=== PATIENT | female | born 1945 | race Caucasian/White ===

== ENCOUNTER → 2019-07-31 14:25 | Outpatient (CLI) | payer MEDICARE, SELFPAY ==
--- NOTE | 2019-07-31 14:30 | MM_ITS ---
PROCEDURE: MM DIG SCREENING MAMM BI W/CAD CLINICAL INDICATION: SCREENING There is no personal or family history of breast cancer. COMPARISON: DIG MAMMO BILAT SCREENING from 05/04/2010 MA MAMMO SCRN DIGITL BILAT from 06/20/2011 DMSB DIG MAMM-SCREEN REX from 06/08/2016 TECHNIQUE: Standard CC and MLO images were obtained. R2 CAD reviewed. FINDINGS: There is a diffusely dense and heterogenic parenchymal pattern lessening the sensitivity of mammography. There are scattered benign-appearing microcalcifications in each breast and a couple of benign-appearing macro calcifications in each breast. The findings are fairly symmetrical bilaterally. There is no new or suspicious lesion in either breast and no suspicious microcalcifications. IMPRESSION: Diffusely dense parenchymal pattern with no suspicious lesions seen BI-RAD Category: 2 Benign Finding(s) FOLLOW-UP: 1YR 1 Year Follow-up (A letter has been sent to the patient regarding results of the study.) Dictated by: Dr. Vinnie Frederick MD 08/05/2019 09:[address] Vinnie Frederick MD in [place] 08/05/2019 09:11
== END ==
PROVIDERS: PCP Family Medicine; Visit Provider Family Medicine
DX: Z12.31 Encounter for screening mammogram for malignant neoplasm of breast (principal)
CPT/HCPCS: 77067

== ENCOUNTER → 2020-12-14 10:51 | Outpatient (POV) | payer MEDICARE, SELFPAY | PROVIDERS: Visit Provider Dermatology | DX: Z00.00 Encounter for general adult medical examination without abnormal findings (principal) ==

== ENCOUNTER → 2021-10-06 09:04 | Outpatient (CLI) | payer MEDICARE, SELFPAY ==
--- NOTE | 2021-10-06 09:08 | MM_ITS ---
PROCEDURE INFORMATION: Exam: MG Bilateral Screening 3D Mammography Exam date and time: 10/06/2021 9:08 AM Age: 75 years old Clinical indication: Encounter for screening mammogram for malignant neoplasm of breast TECHNIQUE: Imaging protocol: Screening tomosynthesis and 2D mammography including computer-aided detection (CAD) when performed. COMPARISON: 1. MG MM DIG SCREENING MAMM BI W/CAD 07/31/2019 3:19 PM 2. MG MAMMO SCREENING DIGITAL TOMOSYNTHESIS BILATERAL W CAD 05/16/2018 11:27 AM 3. MG DMSB DIG MAMM-SCREEN REX 06/08/2016 10:25 AM FINDINGS: MAMMOGRAPHY: Breast composition: The breasts are extremely dense, which lowers the sensitivity of mammography. Mass: No suspicious masses. Architectural distortion: No suspicious distortion. Calcifications: No suspicious calcifications. Asymmetric density: None. Skin thickening: None. Axillary adenopathy: None. IMPRESSION: No mammographic evidence of malignancy. Annual screening is recommended unless otherwise clinically indicated. ASSESSMENT: BI-RADS Category 1: Negative
--- NOTE | 2021-10-06 09:08 | XR_ITS ---
FINAL REPORT TECHNIQUE: Bone mineral density was calculated of the lumbar spine and hip. CLINICAL HISTORY: . osteoporosis, post menopausal FINDINGS: Using L1-4, the bone mineral density of the spine is 0.926 g/cm2, corresponding to T-score of -1.1. Using the left hip, the bone mineral density of the femoral neck is 0.649 g/cm2, corresponding to a T-score of -1.8. NOTE: T-score: Standard deviation compared with peak bone mass of young adult mean. *Following the recommendations of the International Society of Bone densitometry, classification of hip BMD is based on the lower of two T-scores; total hip or femoral neck. IMPRESSION: Diminished bone mineral density of the lumbar spine and left hip consistent with osteopenia. Reviewed, Interpreted and Dictated by Shahid Dimas III, MD Transcribed by Heidi Gonsales Authenticated by Shahid Dimas III, MD on 10/06/2021 11:21:44 AM [facility]
== END ==
PROVIDERS: PCP Family Medicine; Visit Provider Family Medicine
DX: Z12.31 Encounter for screening mammogram for malignant neoplasm of breast (principal); Z13.820 Encounter for screening for osteoporosis; Z78.0 Asymptomatic menopausal state
CPT/HCPCS: 77063; 77067; 77080

== ENCOUNTER → 2021-12-20 09:59 | Outpatient (POV) | payer MEDICARE, SELFPAY | PROVIDERS: Visit Provider Dermatology | DX: Z00.00 Encounter for general adult medical examination without abnormal findings (principal) ==

== ENCOUNTER → 2022-02-02 18:54 | Outpatient (CLI) | payer MEDICARE, SELFPAY | PROVIDERS: Visit Provider Podiatrist | DX: M79.675 Pain in left toe(s) (principal); L60.0 Ingrowing nail; L60.2 Onychogryphosis | CPT/HCPCS: 87102; 87206 ==

== ENCOUNTER → 2022-02-11 10:33 | Outpatient (CLI) | payer MEDICARE, SELFPAY | PROVIDERS: Visit Provider Ophthalmology | DX: Z01.812 Encounter for preprocedural laboratory examination (principal); Z20.822 Contact with and (suspected) exposure to COVID-19 | CPT/HCPCS: C9803; U0003; U0005 ==

== ENCOUNTER 2022-02-14 08:47 | Day surgery (SDC) | payer MEDICARE, SELFPAY ==
[2022-02-09 13:02] VITALS: BMI 24.3
[2022-02-14 09:31] VITALS: BP 151/76; PULSE 63; RESP 18; TEMP 36.6; O2SAT 100
[2022-02-14 10:07] VITALS: BP 148/87; PULSE 65; RESP 18; TEMP 36.9; O2SAT 98
== END 2022-02-14 10:08 | disposition home or self-care (01) ==
LOC: OUTP 08:48
PROVIDERS: PCP Family Medicine; Visit Provider Ophthalmology
PROC: (CPT 66821; principal; 2022-02-14 09:30)
DX: H26.491 Other secondary cataract, right eye (principal); H02.831 Dermatochalasis of right upper eyelid; H02.834 Dermatochalasis of left upper eyelid; Z96.1 Presence of intraocular lens; Z88.2 Allergy status to sulfonamides; Z79.899 Other long term (current) drug therapy
CPT/HCPCS: 66821

== ENCOUNTER → 2022-04-22 10:20 | Outpatient (CLI) | payer MEDICARE, SELFPAY | PROVIDERS: Visit Provider Surgery | DX: U07.1 COVID-19 (principal) | CPT/HCPCS: C9803; U0003; U0005 ==

== ENCOUNTER 2022-05-17 09:10 | Day surgery (SDC) | payer MEDICARE, SELFPAY ==
[2022-05-15 09:49] VITALS: BMI 23.8
[2022-05-17] VITALS (7 sets, daily range): BP systolic 85–147; BP diastolic 47–75; PULSE 64–77; RESP 16–18; TEMP 36.6–37.1; O2SAT 93–100
--- NOTE | 2022-05-17 09:59 | P.PN_ITS ---
[facility] Medical History (Updated 05/17/22 @ 09:27 by Leticia Cordoba, RN) History of COVID-19 Hyperlipidemia Kidney stone Menopause Pneumonia Surgical History (Updated 05/17/22 @ 09:25 by Leticia Cordoba, RN) History of appendectomy Family History (Updated 05/17/22 @ 09:30 by Leticia Cordoba, RN) Other Colon cancer Family history of acute congestive heart failure Family history of diabetes mellitus type I Family history of hypertension Family history of myocardial infarction Family history of ovarian cancer Social History Smoking Status: Never smoker second hand exposure: No alcohol intake: current substance use type: denies use current occupational status: retired household members: none housing: house current occupational exposures/hazards: No caffeine: Yes
--- NOTE | 2022-05-17 10:05 | EXP.HP ---
[facility] Medical History (Updated 05/17/22 @ 10:09 by Harrison Ayon MD) History of COVID-19 Hyperlipidemia Kidney stone Menopause Pneumonia Surgical History (Updated 05/17/22 @ 09:25 by Leticia Cordoba, RN) History of appendectomy Family History (Updated 05/17/22 @ 09:30 by Leticia Cordoba, RN) Other Colon cancer Family history of acute congestive heart failure Family history of diabetes mellitus type I Family history of hypertension Family history of myocardial infarction Family history of ovarian cancer Social History (Updated 05/17/22 @ 10:00 by German Pryor CRNA) Smoking Status: Never smoker second hand exposure: No alcohol intake: current substance use type: denies use current occupational status: retired household members: none housing: house current occupational exposures/hazards: No caffeine: Yes Review of Systems Review of Systems Review of systems (narrative): Normal Constitutional Constitutional: Reports system reviewed and no additional complaints, except as documented *Cardiovascular Cardiovascular: Reports system reviewed and no additional complaints, except as documented *Respiratory Respiratory: Reports system reviewed and no additional complaints, except as documented *Gastrointestinal Gastrointestinal: Reports system reviewed and no additional complaints, except as documented Meds Home Medications and Allergies Home Medications Medication Instructions Recorded Confirmed Type atorvastatin 40 mg tablet 40 mg PO HS Cholesterol 02/01/22 05/17/22 History gabapentin 100 mg capsule 100 mg PO DAILY Pain 02/01/22 05/17/22 History peg 3350 240 gram-electrolytes 240 ml PO Q10M Colonscopy #4,000 mL 05/15/22 05/17/22 Rx 22.72 gram-6.72 g-5.84 g powdr for soln (Gavilyte-C) New Prescriptions to Start Prescriptions: Allergies Allergy/AdvReac Type Severity Reaction Status Date / Time Sulfa (Sulfonamide AdvReac Mild rash and Verified 05/17/22 09:28 Antibiotics) itching Exam Data for Last 24 hours Vital signs and Labs for Last 24 Hours: Temp Pulse Resp BP Pulse Ox 98.7 F 70 17 147/70 H 100 05/17/22 09:30 05/17/22 09:30 05/17/22 09:30 05/17/22 09:30 05/17/22 09:30 I & O for Last 24 hours: Intake & Output 05/14/22 05/15/22 05/16/2205/17/22 23:59 23:59 23:59 23:59 Weight 152 lb Assessment and Plan *Assessment and plan (1) Colonoscopy planned: Status: Acute Category: Medical
--- NOTE | 2022-05-17 10:34 | HMH.SCOPE ---
Procedure: Date: 05/17/22 Patient Date of :: 1945 Procedure Performed:: Colonoscopy Indications:: The patient is a 76 year old who is here for high risk screening colonoscopy. She has a family history of colon cancer in a first degree relative (mother) Performing Provider:: Harrison Ayon MD Referring Provider:: Dudley Calvillo MD Sedation:: See RN notes Procedure:: After placing the patient in the left lateral decubitus position, the colonoscopy was gently inserted into the rectum and under direct visualization advanced to the cecum which was identified by transillumination in the right lower quadrant, identification of the ileocecal valve, appendiceal orifice, and cecal strap. Color, texture, mucosa, and anatomy of the colon were carefully examined with the scope. Bowel preparation was good Findings:: Anal canal: normal Rectum: Internal hemorrhoids Sigmoid colon: Diverticulosis Descending colon: normal without polyps or inflammatory changes Splenic flexure: normal Transverse colon: normal without polyps or inflammatory changes Hepatic flexure: normal Ascending colon: normal without polyps or inflammatory changes Cecum: normal Terminal ileum: not visualized Impression: Sigmoid diverticulosis Tortuous colon Recommendations:: higher fiber diet repeat colonoscopy in 5 years if overall health is still good Complications:: none Estimated blood obtained (mL): 0
== END 2022-05-17 11:25 | disposition home or self-care (01) ==
PROVIDERS: Visit Provider Internal Medicine
PROC: 0DJD8ZZ Inspection of Lower Intestinal Tract, Via Natural or Artificial Opening Endoscopic (ICD-10-PCS; CPT 45378; principal; 2022-05-17 10:00)
DX: Z12.11 Encounter for screening for malignant neoplasm of colon (principal); Z86.010 Personal history of colon polyps; Z80.0 Family history of malignant neoplasm of digestive organs
CPT/HCPCS: G0105

== ENCOUNTER 2023-08-21 08:57 | Day surgery (SDC) | payer MEDICARE, SELFPAY ==
[2023-08-21 09:15] VITALS: BP 136/73; PULSE 71; RESP 16; TEMP 36.7; O2SAT 98; BMI 24.3
== END 2023-08-21 10:00 | disposition home or self-care (01) ==
PROVIDERS: PCP Internal Medicine; Visit Provider Ophthalmology
PROC: (CPT 66821; principal; 2023-08-21 09:00)
DX: H26.40 Unspecified secondary cataract (principal)
CPT/HCPCS: 66821

== ENCOUNTER 2024-10-07 11:09 | Outpatient (CLI) | payer MEDICARE, SELFPAY | END 2024-10-07 23:59 | disposition home or self-care (01) | LOC: LAB 11:13 | PROVIDERS: PCP Family Medicine; Visit Provider Family Medicine | DX: Z02.9 Encounter for administrative examinations, unspecified (principal) ==

== ENCOUNTER 2024-10-26 09:32 | Emergency (ER) | payer MEDICARE, SELFPAY ==
[2024-10-26] VITALS (12 sets, daily range): BP systolic 127–165; BP diastolic 46–127; PULSE 66–112; RESP 10–23; TEMP 36.7–37.5; O2SAT 94–99; BMI 25.0
--- NOTE | 2024-10-26 09:39 | ECG_ITS ---
APPROVED REPORT Exam: Resting ECG HR:106 bpm ECG Measurements Heart Rate 106 AXES MO 148 P 73 QRSd 96 QRS 81 QT 269 T 57 QTc 331 Conclusion Sinus tachycardia Diffuse ST depression without elevations consistent with global subendocardial ischemia Electronically signed by : LOKI SCHMID, 10/27/2024 13:18:02
--- NOTE | 2024-10-26 10:13 | XR_ITS ---
PROCEDURE INFORMATION: Exam: XR Chest Exam date and time: 10/26/2024 10:29 AM Age: 79 years old Clinical indication: Shortness of breath; Additional info: SOA, dizziness TECHNIQUE: Imaging protocol: Radiologic exam of the chest. Views: 1 view. COMPARISON: No relevant prior studies available. FINDINGS: Lungs: Unremarkable. No consolidation. Pleural spaces: Unremarkable. No pleural effusion. No pneumothorax. Heart/Mediastinum: There are calcified lymph nodes in the right hilar region. Vasculature: There is atherosclerotic calcification of the thoracic aorta. Bones/joints: Unremarkable. IMPRESSION: No acute cardiopulmonary process.
--- NOTE | 2024-10-26 10:22 | HMH.EDGENADL ---
Discharge Plan Disposition Patient Disposition: Xfer Short-Term Hosp Chief Complaint: Dizziness Prescriptions Prescriptions: No Action atorvastatin 40 mg tablet 40 mg PO HS Referrals Follow up/Referrals: Dudley Calvillo [Primary Care Provider] - See instructions Clinical Impressions Clinical Impression: Cold agglutinin disease, Hemolytic anemia, Acute hepatitis Print Language Print Language: Korean Discharge ED Provider: Edilson Barraza General Adult HPI General Chief complaint: Dizziness Stated complaint: dizzy, cant walk Time Seen by Provider: 10/26/24 09:42 Mode of Arrival: Wheelchair Source of Information: Patient Limitations: No Limitations Description of Symptoms (Recalled from ER Triage Doc. by RN): pt states she woke up yesterday dizzy. pt states when she stands the room feels like it is spinning. pt also c/o fatigue, SOA with exertion, nausea, and a nonproductive cough. pt has a hx of HLD and appe. History of Present Illness HPI narrative: Please note that above description of symptoms, in this electronic medical record under categorization of recalled from ER triage doctor by RN are reflective of an initial nursing assessment, however, is not reflective of my full history and physical exam that was personally taken and clarified. Consequentially, this preceding description of symptoms, which may include the patient's categorized chief complaint in the EMR, do not reflect my personal clinical impression, and the ultimate description of history of present illness and patient stated complaints should be deferred to this section of the note. Unless stated otherwise or congruent with this section of the note, additional signs, symptoms, or incongruence should be interpreted as inaccurate with my clinical impression. Related Data Home Medications ?Medication ?Instructions ?Recorded ?Confirmed atorvastatin 40 mg tablet 40 mg PO HS Cholesterol 02/01/22 10/26/24 Allergies Allergy/AdvReac Type Severity Reaction Status Date / Time Sulfa (Sulfonamide AdvReac Mild rash and Verified 10/26/24 09:45 Antibiotics) itching PFSH [facility] Disclaimer: The information contained in this section may have been updated after the patient was seen, as this information can be updated by other users. Medical History (Updated 10/26/24 @ 13:43 by Edilson Barraza MD) Kidney stone Pneumonia History of COVID-19 Menopause Hyperlipidemia Surgical History History of appendectomy Family History Other Colon cancer Family history of acute congestive heart failure Family history of diabetes mellitus type I Family history of hypertension Family history of myocardial infarction Family history of ovarian cancer Social History Smoking Status: Never smoker second hand exposure: No alcohol intake: current alcohol intake frequency: holidays/special occasions only substance use type: denies use current occupational status: retired Travel in the last 8 weeks: None household members: none housing: house current occupational exposures/hazards: No caffeine: Yes Have you lived/traveled outside [place] in past 30 days?: No Contact w/someone who lives/traveled outside US past 30 days?: No Exposure to someone with infectious disease in past 14 days?: No Do you have a fever (greater than 100.4 F or 38 C)?: No Have you tested positive for COVID-19: No Exposed to someone with COVID-19 in past 14 days?: No Do you have a sore throat?: No Do you have a cough?: No Do you have any weakness?: No Do you have any diarrhea?: No Are you experiencing any unusual bleeding?: No Do you have any muscle aches/pain?: No Do you have any abdominal pain?: No Are you experiencing loss of taste or smell?: No Other Medical History Have you received the Flu Vaccine for this season: Yes Have you received the Pneumonia Vaccine: Yes ROS Obtained: Yes All systems reviewed & no additional complaints except as documented Physical Exam General General appearance: alert Head Head exam: atraumatic and normocephalic Eye Eye exam: Present normal appearance, PERRL and EOMI Neck Neck exam: Present normal inspection, full ROM and trachea midline Respiratory Respiratory exam: Absent respiratory distress, wheezes, stridor, accessory muscle use or prolonged expiratory phase Cardiovascular Cardiovascular exam: Present other (Pulses equal symmetric in upper and lower extremities) Abdominal Exam Abdominal exam: Present soft; Absent distention, tenderness or pulsatile mass Extremities Exam Extremities exam: Absent edema Neurological Exam Neurological exam: Present alert, oriented X3 and CN II-XII intact; Absent motor sensory deficit Skin Skin exam: Present warm and dry; Absent diaphoresis or erythema Medical Decision Making Medical Records Medical records reviewed: Yes I reviewed the patient's medical records. Screening: Per USPSTF and CDC recommendations, given the prevalence of disease in our region, it is our hospital?s policy to screen for HIV and viral Hepatitis for all patients aged 18 and over and those with ongoing risk factors. Jhonny Inquiry Pt receiving controlled substance: No Jhonny was queried for this patient: No Vital Signs: 10/26/24 09:41 10/26/24 10:31 10/26/24 11:00 Temperature 99.5 F Temperature Source Oral Pulse Rate 111 H 99 H Pulse Rate [Left] 66 Respiratory Rate 10 L 15 18 Blood Pressure 140/46 L 127/47 L Blood Pressure [Right Arm] 165/58 H Blood Pressure Mean [Right Arm] 93 Blood Pressure Source [Right Arm] Automatic Cuff Blood Pressure Position [Right Arm] Sitting 02 Sat by Pulse Oximetry 99 98 96 Oxygen Delivery Method Room Air Room Air Room Air 10/26/24 11:30 10/26/24 11:45 10/26/24 12:00 Temperature Temperature Source Pulse Rate 106 H 109 H 111 H Pulse Rate [Left] Respiratory Rate 16 12 21 Blood Pressure 136/55 L Blood Pressure [Right Arm] Blood Pressure Mean [Right Arm] Blood Pressure Source [Right Arm] Blood Pressure Position [Right Arm] 02 Sat by Pulse Oximetry 96 98 96 Oxygen Delivery Method Room Air 10/26/24 12:15 10/26/24 12:30 10/26/24 12:45 Temperature Temperature Source Pulse Rate 105 H 110 H 112 H Pulse Rate [Left] Respiratory Rate 12 18 23 Blood Pressure 128/59 L 132/61 Blood Pressure [Right Arm] Blood Pressure Mean [Right Arm] Blood Pressure Source [Right Arm] Blood Pressure Position [Right Arm] 02 Sat by Pulse Oximetry 96 97 98 Oxygen Delivery Method Room Air Room Air Lab Data Lab Results 10/26/24 09:45: PT 11.6, INR 1.06, APTT 22.1 L, Fibrinogen 390 H, D-Dimer > 8.10 H, Sodium 134 L, Potassium 4.0, Chloride 100, Carbon Dioxide 24, Anion Gap 14.0, BUN 27 H, Creatinine 0.80, Estimated Creat Clear 51, Estimated GFR 69, Est GFR ( Amer) 83, Glucose 147 H, Calcium 8.7, Magnesium 1.9, Total Bilirubin 4.9 H, Direct Bilirubin 0.8 H, AST 590 H*, ALT 151 H, Alkaline Phosphatase 70, Troponin I 0.06 H, NT-Pro-B Natriuret Pep 927 H, Total Protein 6.3, Albumin 4.0, Globulin 2.3, Albumin/Globulin Ratio 1.7, Triglycerides 91, Cholesterol 187, LDL Cholesterol Direct 85.23 L, VLDL Cholesterol 18, HDL Cholesterol 59, Cholesterol/HDL Ratio 3.2, Procalcitonin 1.15, TSH 3.15, Thyroxine (T4) 7.3, HCV Ab VIKRAM w/Rflx PCR Qn Negative, HIV Ag/Ab Combo Qual Negative 10/26/24 10:15: Urine Color Yellow, Urine Appearance Clear, Urine pH 6.0, Ur Specific [place] >= 1.030, Urine Protein 2+ A, Urine Glucose (UA) Negative, Urine Ketones Negative, Urine Blood 2+ A, Urine Nitrate Positive A, Urine Bilirubin 1+ A, Urine Urobilinogen 1.0, Ur Leukocyte Esterase Trace, Urine RBC None, Urine WBC 3-5, Ur Squamous Epith Cells 5-10 10/26/24 10:17: VBG pH 7.40, VBG pCO2 35.5, VBG pO2 38.7, VBG HCO3 21.7 L, VBG Total CO2 22.8 L, VBG Base Excess -3.0 L, VBG Lactic Acid 3.8 H 10/26/24 09:45 Orders (Tests/Meds): ED MEDICATIONS Discontinued Medications Generic Name Dose Route Start Last Admin Trade Name Freq PRN Reason Stop Dose Admin Lactated Ringer's 1,850 mls @ 925 mls/hr 10/26/24 11:08 10/26/24 11:14 Lactated Ringer's 1000 Ml Bag 30 ml/kg infuse over 2 hr (1850 ml) 10/26/24 13:07 925 mls/hr IV Administration .Q2H ONE Ceftriaxone Sodium 1 gm/ 50 mls @ 100 mls/hr 10/26/24 12:30 10/26/24 12:52 Sodium Chloride IV 10/26/24 12:59 100 mls/hr ONCE ONE Administration Iopamidol 70 ml 10/26/24 13:08 10/26/24 13:09 Iopamidol-370 (76%);100ml Bottle IV 10/26/24 13:09 70 ml ONCE ONE Administration Methylprednisolone Sodium Succinate 125 mg 10/26/24 11:08 10/26/24 11:14 Methylprednisolone Sod Succ 125mg Vial IV 10/26/24 11:09 125 mg ONCE ONE Administration Sodium Chloride 10 ml 10/26/24 13:08 10/26/24 13:09 Sodium Chloride 0.9% 10ml Syr (Rad Only) IV 10/26/24 13:09 10 ml ONCE ONE Administration Sodium Chloride 50 ml 10/26/24 13:08 10/26/24 13:09 0.9 % Sodium Chloride 50 Ml Vial IV 10/26/24 13:09 50 ml ONCE ONE Administration ORDERS Category Date Time Status Direct Toi Stat BBK 10/26/24 10:35 Received Type and Screen Stat BBK 10/26/24 10:[address] angio chest PE protocol Stat Cat Scan 10/26/24 12:57 Completed POCUS Point of Care (ER Only) Stat Exams 10/26/24 10:24 Completed XR chest portable Stat Exams 10/26/24 10:13 Completed Bilirubin,Direct Stat Lab 10/26/24 09:45 Completed Complete Blood Count Auto Diff Stat Lab 10/26/24 09:45 Received Comprehensive Metabolic Panel Stat Lab 10/26/24 09:45 Completed D-Dimer Stat Lab 10/26/24 09:45 Completed Fibrinogen Stat Lab 10/26/24 09:45 Completed HIV Combo Stat Lab 10/26/24 09:45 Completed Hemoglobin A1C Stat Lab 10/26/24 09:45 Received Hepatitis C Ab Qual. W/ RFX Stat Lab 10/26/24 09:45 Completed Hepatitis Panel Stat Lab 10/26/24 10:35 Received Lactic Acid Stat Lab 10/26/24 10:35 Received Lipase Stat Lab 10/26/24 09:45 Received Lipid Panel Stat Lab 10/26/24 09:45 Completed Magnesium Stat Lab 10/26/24 09:45 Completed NT Pro Brain Natriuretic Pep. Stat Lab 10/26/24 09:45 Completed PT INR [Prothrombin Time INR] Stat Lab 10/26/24 09:45 Completed PTT [Activated Partial Thrombo Time] Stat Lab 10/26/24 09:45 Completed Procalcitonin Stat Lab 10/26/24 09:45 Completed T4 (Thyroxine) Stat Lab 10/26/24 09:45 Completed TSH [Thyroid Stimulating Hormone] Stat Lab 10/26/24 09:45 Completed Troponin I Q3H Lab 10/26/24 13:15 Ordered Troponin I Q3H Lab 10/26/24 16:15 Ordered Troponin I Stat Lab 10/26/24 09:45 Completed Urinalysis and Microscopic Stat Lab 10/26/24 10:15 Completed Blood Culture Stat Micro 10/26/24 10:38 Received Urine Culture Stat Micro 10/26/24 10:15 Received Venous Blood Gas Stat RT 10/26/24 10:17 Results Medical Decision Narrative: 79-year-old female presenting with weakness, lightheadedness. Patient states that this has been getting worse over about the period of a week. States that she gets dizzy with exertion. Has had falls because of it. States that she has shortness of breath. Family says that patient's color has been poor as well. Patient denies vomiting, diarrhea, dark tarry stools, blood in her urine, chest pain, or any other concerns. She was recently referred to rheumatology for an autoimmune disease, but does not know any more information about this. History was obtained via conversation with patient and family. On arrival, patient hemodynamically stable, alert, oriented x4, appropriate, GCS 15, moving all extremities spontaneously, pupils equal and reactive to light. Full physical exam performed and significant for ill-appearing female who is in no acute distress. Neurologically intact including cranial nerves, cerebellar, motor and sensory exams. No nystagmus. Heart with left upper sternal border murmur. Mild lower extremity nonpitting edema with associated vasculopathy which appear similar to mottling on areas that are not covered. Pulses equal and symmetric in upper and lower extremities. NIHSS 0. Differential includes autoimmune disease, call agglutinin disease, hemolytic anemia, not hemolytic anemia, renal disease, ACS, AL, arrhythmia, metabolic abnormality, endocrinologic abnormality, sepsis, UTI, among others. Patient placed on continuous cardiac monitoring and continuous pulse ox with initial blood pressure 165/58, heart rate 105, saturation 99% on room air. Independent interpretation of EKG shows sinus tachycardia 106 bpm. MS interval 148, QRS 96, QTc 331. Patient has a normal axis. She does have diffuse ST depression consistent with subendocardial ischemia. Likely secondary to anemia based on patient's appearance. Patient was given warmed fluids for symptomatic management and correction of underlying abnormalities. Prior to labs resulting, lab called and stated that they are concerned that patient has coagulation disorder, may be cold agglutinin and need repeat labs drawn. Workup independently interpreted and significant for normal PT/INR, normal PTT. Her D-dimer was undetectably high at greater than 8.0 ng/mL. Fibrinogen unremarkable at 390. Patient's blood gas with pH 7.4/CO2 35/bicarb low at 21.7/lactate 3.8. Chemistry with normal electrolytes. Regarding LFTs, total bili 5.0, direct bilirubin 0.8, AST 590, ALT 151. Normal alkaline phosphatase. Troponin mildly elevated 0.06 and BNP mildly elevated 927, I feel troponin likely secondary to rate related change given diffuse ST depressions on EKG. On independent interpretation of imaging, no acute cardiopulmonary space disease on chest x-ray. CT PE was ordered given elevated dimer, tachycardia, etc. On independent interpretation, no pneumothorax, no PE, no abnormalities. See radiology read for full review of final results. Lab came down and discussed patient's case with us. States that despite warm legs, warm fluids, warm tubes, incubator, etc., unable to run patient CBC. I have strong suspicion that patient is incredibly anemic given her clinical appearance, however I have no ability to run type and screen, or rest of hematologic labs given lack of hardware here at [facility]. [facility] was contacted and case was discussed with Dr. Turk. He graciously excepted transfer for further evaluation. I feel this is likely care support representative of autoimmune hematologic disorder with hemolytic anemia and less likely due to obstructive pathology given normal alkaline phosphatase. To be transferred to [facility] for further definitive evaluation and management. Quarrying Specialist disclaimer Much of this encounter note is an electronic fire extinguisher sprinkler inspector spoken language to printed text. Electronic fire extinguisher sprinkler inspector of the spoken language may permit errors. Although I have reviewed the note, some errors may still exist. Procedures Limited Ultrasound Indication:: Limited cardiac ultrasound Indication: Lightheadedness, presyncope Identified cardiac views: -Cardiac parasternal long axis -Cardiac parasternal short axis -Cardiac apical four-chamber Findings: -Cardiac activity present -Gross wall motion normal -Pericardial effusion absent -Right heart strain absent Impression: -Normal cardiac ultrasound Images were saved to permanent archive The study was technically adequate CPT: 51985 This study was performed by me, and I personally interpreted all images/videos. Based on my clinical judgement, these images were adequate and did not necessitate further imaging Critical Care Critical Care Time Critical Care Time: Yes (hematologic, cardiac) Attestation: On 10/26/24, the high probability of a clinically significant, sudden or life threatening deterioration of the following system(s) required my full and direct attention, intervention and personal management. The time I documented below is in addition to time spent performing reported procedures but includes the following listed in this critical care notation. Total Time Total Critical Care Time: 45
[2024-10-26 10:30] LABS: Lactate Venous 3.8 mmol/L (0.4-2.0); VBG HCO3 21.7 mmol/L (23-30); VBG PCO2 35.5 mmol/L (35-51); VBG PO2 38.7 mmol/L (28-40); VBG Total CO2 22.8 mmol/L (23-27)
[2024-10-26 10:36] LABS: Alanine Aminotransferase 151 U/L (12-78); Albumin/Globulin Ratio 1.7 (1.1-1.8); Alkaline Phosphatase 70 U/L (38-126); Aspartate Amino Transferase 590 U/L (14-36); Bilirubin,Total 4.9 mg/dl (0.2-1.3); Blood Urea Nitrogen 27 mg/dl (7-17); Calcium 8.7 mg/dl (8.4-10.2); Carbon Dioxide 24 mmol/L (22.0-30.0); Chloride 100 mmol/L (98-107); Chol/HDL Ratio 3.2 (1-3.5); Cholesterol 187 mg/dl (140-200); Creatinine Clearance Estimated 51 mL/min (50-200); Estimated Glomerular Filt Rate 69 ml/min (>60); GFR (African American) 83 ML/MIN (>60); Globulin 2.3 g/dL (1.3-3.2); Glucose 147 mg/dl (74-100); HDL Cholesterol 59 mg/dl (40-60); Magnesium 1.9 mg/dl (1.6-2.3); Sodium 134 mmol/L (136-145); Total Protein,Serum 6.3 g/dl (6.3-8.2); Triglycerides 91 mg/dl (30-150); VLDL Cholesterol 18 mg/dL (0-40)
[2024-10-26 10:37] LABS: Bilirubin,Direct 0.8 mg/dl (0.0-0.4)
--- NOTE | 2024-10-26 10:38 | PC.NURSE ---
I obtained both sets of blood cultures and helped draw the type&screen with Rolf from lab.
[2024-10-26 10:46] LABS: Direct LDL Cholesterol 85.23 mg/dL (100-129)
[2024-10-26 10:49] LABS: NT Pro Brain Natriuretic Pep. 927 pg/mL (0-450)
[2024-10-26 10:50] LABS: Troponin I 0.06 ng/ml (0.00-0.034)
[2024-10-26 10:51] LABS: Activated Partial Thrombo Time 22.1 seconds (22.5-28.5); INR 1.06 (0.9-1.1); Prothrombin Time 11.6 seconds (9.2-12.1)
[2024-10-26 10:57] LABS: Procalcitonin 1.15 ng/mL (0.0-2.0); T4 (Thyroxine) 7.3 ug/dl (5.53-11.0)
--- NOTE | 2024-10-26 11:09 | PC.NURSE ---
speaking with laborer golf [employer] about difficulty obtaining the CBC
--- NOTE | 2024-10-26 11:09 | PC.NURSE ---
per lab pt blood is clumping together before they can run the blood to get accurate results.
[2024-10-26 11:11] LABS: Thyroid Stimulating Hormone 3.15 uIU/mL (0.465-4.68)
[2024-10-26] MEDS: LACTATED RINGERS 1000ML 1,850 ML 925 ML IV (11:14)
[2024-10-26] MEDS: METHYLPREDNISOLONE SOD SUCC 125MG VIAL 125 MG IV (11:14)
--- NOTE | 2024-10-26 11:14 | PC.NURSE ---
pt was given 3 warm blankets at this time no other needs at this time,call light in reach
[2024-10-26 11:17] LABS: Appearance,Urine CLEAR (Clear); Blood, Urine 2+ (Negative); Color,Urine YELLOW (Yellow); Glucose,Urine (UA) Negative (Negative); Ketones,Urine Negative (Negative); Leukocyte Esterase,Urine TRACE (Negative); Microscopic, Urine URINE MICROSCOPIC (MICROSCOPIC); Nitrate,Urine POSITIVE (Negative); Protein,Urine 2+ (Negative); Specific Gravity, Urine >= 1.030 (1.005-1.030)
[2024-10-26 11:18] LABS: Fibrinogen 390 mg/dL (208.1-352.0)
[2024-10-26 11:38] LABS: D-Dimer > 8.10 ug/mL (0.0-0.5)
[2024-10-26 11:52] LABS: HIV Combo NEGATIVE (Negative)
--- NOTE | 2024-10-26 11:55 | PC.NURSE ---
wants to cancel the occult stool sample due to pt recent test results and she had one 2 weeks ago which showed negative
[2024-10-26 11:59] LABS: Bilirubin,Urine 1+ (Negative)
[2024-10-26 12:00] LABS: Hepatitis C Ab Qual. W/ RFX NEGATIVE (Negative)
[2024-10-26] MEDS: CEFTRIAXONE 1 GM 1 GM in 0.9 % SODIUM CHLORIDE 50 ML IV (12:52)
--- NOTE | 2024-10-26 12:57 | CT_ITS ---
PROCEDURE INFORMATION: Exam: CTA Chest With Contrast Exam date and time: 10/26/2024 1:07 PM Age: 79 years old Clinical indication: Shortness of breath; Additional info: SOA tachycardia, dimer TECHNIQUE: Imaging protocol: Computed tomographic angiography of the chest with contrast. Exam focused on the arteries. 3D rendering (Not supervised by radiologist): MIP and/or 3D reconstructed images were created by the technologist. Radiation optimization: All CT scans at this facility use at least one of these dose optimization techniques: automated exposure control; mA and/or kV adjustment per patient size (includes targeted exams where dose is matched to clinical indication); or iterative reconstruction. Contrast material: ISOVUE 370; Contrast volume: 70 ml; Contrast route: INTRAVENOUS (IV); COMPARISON: CR XR CHEST PORTABLE 10/26/2024 10:29 AM FINDINGS: Pulmonary arteries: Main pulmonary artery is nondilated. There are no filling defects in the segmental and subsegmental branches. Aorta: There are scattered areas of atherosclerosis in the thoracic aorta without evidence of aneurysm. Trachea: Trachea and proximal airways are patent. Lungs: There are mild hypoventilatory changes in the lungs. Pleural spaces: There is no pneumothorax or pleural effusion. Heart: There is no cardiomegaly or pericardial effusion. Lymph nodes: There are calcified lymph nodes in the right hilar region. Bones/joints: The osseous structures of the thorax demonstrate no abnormalities. Soft tissues: Unremarkable. IMPRESSION: 1. No evidence of pulmonary embolism. 2. Mild hypoventilatory changes in the lungs.
[2024-10-26] MEDS: SODIUM CHLORIDE 0.9% 10ML SYR (RAD ONLY) 10 ML IV (13:09)
[2024-10-26] MEDS: IOPAMIDOL-370 (76%);100ML BOTTLE 70 ML IV (13:09)
[2024-10-26] MEDS: 0.9 % SODIUM CHLORIDE 50 ML VIAL IV (13:09)
--- NOTE | 2024-10-26 13:20 | PC.NURSE ---
calling [facility] for transfer for pt possible per for cold aggultinin disease and acute hepatitis and we have no ability to get labs
--- NOTE | 2024-10-26 13:21 | PC.NURSE ---
speaking to md about transferring pt
--- NOTE | 2024-10-26 13:37 | PC.NURSE ---
pr auth for pt transfer for [facility] has been done and faxed for [employer] i have received conformation that it went through okay
--- NOTE | 2024-10-26 13:37 | PC.NURSE ---
report called to cheikh at [facility]
--- NOTE | 2024-10-26 13:40 | PC.NURSE ---
[facility] called for pt transport to
[2024-10-26 14:03] LABS: Lipase 25 U/L (23-300)
[2024-10-26 14:30] LABS: Reflex Lactic Add Lactic Reflex
[2024-10-26 14:31] LABS: Lactic Acid 2.9 mmol/L (0.7-2.1)
[2024-10-27 11:30] LABS: HBsAg Screen Negative (Negative); HCV Ab Non Reactive (Non Reactive); Hep A Ab, IGM Negative (Negative); Hep B Core Ab, IgM Negative (Negative)
== END 2024-10-26 14:20 | disposition short-term general hospital (02) ==
PROVIDERS: Emergency Provider Emergency Medicine; PCP Family Medicine
DX: B17.9 Acute viral hepatitis, unspecified (principal); D58.9 Hereditary hemolytic anemia, unspecified; D59.12 Cold autoimmune hemolytic anemia; R06.02 Shortness of breath; R42 Dizziness and giddiness; R53.83 Other fatigue; R11.0 Nausea; R05.9 Cough, unspecified
CPT/HCPCS: 71045; 71275; 80053; 80061; 80074; 81001; 82248; 82803; 83605; 83690; 83735; 83880; 84145; 84436; 84443; 84484; 85378; 85384; 85610; 85730; 86803; 86850; 86870; 86880; 87040; 87086; 87389; 93005; 96361; 96365; 96374; 99291; J0696; J2919; J7120; Q9967